=== PATIENT | male | born 1965 | race Caucasian/White ===

== ENCOUNTER 2022-11-13 14:36 | Outpatient (CLI) | payer OTHER, SELFPAY ==
--- NOTE | ~2022-11-13 | CT_ITS ---
EXAMINATION: CT lung screening DATE: 11/13/2022 14:57 INDICATION: Personal history of nicotine dependence, current smoker with 40 pack year history TECHNIQUE: Computed tomography (CT) of the chest was performed without intravenous contrast. The dose -length product (DLP) was 168.10 mGy-cm. Automated exposure control and iterative reconstruction tech ITN were employed. COMPARISON: None FINDINGS: There is mild emphysema. There are scattered nodule of the lungs which measure up to 4 mm i n the left upper lobe. No pleural effusion or pneumothorax. There is subsegmental atelectasis in the right middle lobe. The lungs are free of acute opacities. There is a calcified nodule in the left low er lobe. No pathologically enlarged thoracic lymph nodes are identified. The heart size is normal. Ca lcified coronary artery atherosclerosis is noted. Nonobstructing stones of the left kidney measure up to 3 mm. There is mild thoracic spondylosis. IMPRESSION: 1. Lung-RADS category 2: Benign appearance or behavior. Continue annual screening with noncontrast lo w-dose chest CT in 12 months. Reviewed, dictated and finalized at location F. N FARMER IMPRESSION: 1. Lung-RADS category 2: Benign appearance or behavior. Continue annual screeni ng with noncontrast low-dose chest CT in 12 months.
== END 2022-11-13 14:37 | disposition home or self-care (01) ==
PROVIDERS: PCP Nurse Practitioner Family; Visit Provider Nurse Practitioner Family
DX: Z12.2 Encounter for screening for malignant neoplasm of respiratory organs (principal); F17.210 Nicotine dependence, cigarettes, uncomplicated
CPT/HCPCS: 71271

== ENCOUNTER 2024-06-05 16:33 | Outpatient (CLI) | payer OTHER, SELFPAY ==
--- NOTE | ~2024-06-05 | CT_ITS ---
EXAMINATION: CT lung screening DATE: 06/05/2024 16:50 INDICATION: Z87.891 - Personal history of nicotine dependence TECHNIQUE: Computed tomography (CT) of the chest was performed without intravenous contrast. Addition al 3D reconstructions utilizing coronal maximum intensity projection (MIP) were performed. Automated exposure control and iterative reconstruction technique were employed. The dose-length product was 12 1.89 mGy-cm. COMPARISON: 11/13/2022 FINDINGS: Mild emphysema. There are few with bilateral scattered calcified pulmonary nodules consistent with ol d granulomatous disease. No significant interval change in a few additional small bilateral scattered noncalcified pulmonary nodules, the largest measuring up to 4 mm in the left upper lobe. Unchanged m ild linear discoid atelectasis/scarring in the right middle lobe and lingula. No pulmonary edema, ple ural effusion or pneumothorax. Heart size normal. No pericardial effusion. Small amount of atheroscle rotic coronary artery calcification along the left anterior descending coronary artery. No pericardia l effusion. Thoracic aorta is normal in caliber. No pathologically enlarged thoracic lymphadenopathy. Visualized upper abdomen is unremarkable. Mild thoracic spondylosis with bridging osteophytes at mul tiple levels consistent with diffuse idiopathic skeletal hyperostosis (DISH). IMPRESSION: 1. Lung-RADS category 2: Benign appearance or behavior. Continue annual screening with noncontrast lo w-dose chest CT in 12 months. Reviewed, dictated and finalized at location A. IMPRESSION: 1. Lung-RADS category 2: Benign appearance or behavior. Continue annual screeni ng with noncontrast low-dose chest CT in 12 months.
== END 2024-06-05 16:34 | disposition home or self-care (01) ==
LOC: ANHIMG 16:33
PROVIDERS: PCP Physician Assistant Medical; Visit Provider Physician Assistant Medical
DX: Z12.2 Encounter for screening for malignant neoplasm of respiratory organs (principal); Z87.891 Personal history of nicotine dependence
CPT/HCPCS: 71271

== ENCOUNTER 2025-07-30 15:48 | Outpatient (CLI) | payer OTHER, SELFPAY ==
--- NOTE | ~2025-07-30 | CT_ITS ---
EXAMINATION:CT lung screening DATE: 07/30/2025 16:06 INDICATION: 41 pack-year history of smoking. Current smoker. TECHNIQUE: Computed tomography (CT) of the chest was performed without intravenous contrast. Automated exposure control and iterative reconstruction technique were employed. The dose-length product (DLP) was 125.58 mGy-cm. COMPARISON: Previous lung cancer screening CT scan dated 06/05/2024. FINDINGS: Mild centrilobular pattern of emphysema. No pulmonary mass or nodules are seen. No lymphadenopathy or effusion. Moderate coronary calcification of the left anterior descending coronary artery. IMPRESSION: 1. Emphysematous lungs with small subpleural bullae at the apex of the lungs. No solid pulmonary mass. 2. Continue annual low-dose screening. Lung -RADS category 2 Reviewed, dictated and finalized at location T. KEAG OPERATOR IMPRESSION: 1. Emphysematous lungs with small subpleural bullae at the apex of the lungs. N o solid pulmonary mass. 2. Continue annual low-dose screening. Lung -RADS category 2
== END 2025-07-30 15:49 | disposition home or self-care (01) ==
PROVIDERS: PCP Physician Assistant Medical; Visit Provider Physician Assistant Medical
DX: Z12.2 Encounter for screening for malignant neoplasm of respiratory organs (principal); Z87.891 Personal history of nicotine dependence
CPT/HCPCS: 71271